=== PATIENT | male | born 1995 | race Caucasian/White ===

== ENCOUNTER 2021-06-17 17:06 | Outpatient (CLI) | payer BC ==
[2021-06-18 03:28] LABS: SARS-CoV-2 PCR by NAA Not Detected (NotDetected)
== END 2021-06-17 17:07 | disposition home or self-care (01) ==
LOC: LABBT 17:06
PROVIDERS: ATTEND Surgery Surgery of the Hand
DX: S66.302A Unspecified injury of extensor muscle, fascia and tendon of right middle finger at wrist and hand level, initial encounter (principal); Z20.822 Contact with and (suspected) exposure to COVID-19
CPT/HCPCS: U0003; U0005

== ENCOUNTER 2021-06-18 12:42 | Day surgery (SDC) | payer BC ==
[2021-06-17 11:50] VITALS: BMI 26.6
[2021-06-18] MEDS ORDERED: Fentanyl 250 MCG/5 ML VIAL ONE (13:07)
[2021-06-18] MEDS ORDERED: Bupivacaine 0.25% HCL 30 ML VIAL ONE (13:21)
[2021-06-18] MEDS ORDERED: Bacitracin Zinc Ointment 30 gm TUBE ONE (13:21)
[2021-06-18] MEDS ORDERED: Lidocaine 1% w/Epinephrine 1:100K 30 ML VIAL ONE (13:21)
[2021-06-18] MEDS ORDERED: ceFAZolin 2 GM/Dextrose 50 ML IVPB ONE (13:34)
[2021-06-18] MEDS ORDERED: Midazolam HCl 2 mg/2 ml Vial ONE (13:38)
[2021-06-18] MEDS ORDERED: Propofol 500 MG/50 ML VIAL ONE (13:38)
[2021-06-18] MEDS ORDERED: Dexamethasone 20 MG/5 ML VIAL ONE (14:04)
== END 2021-06-18 15:12 | disposition home or self-care (01) ==
LOC: SDC 12:42
PROVIDERS: ATTEND Surgery Surgery of the Hand
PROC: 0LQ70ZZ Repair Right Hand Tendon, Open Approach (ICD-10-PCS; principal; 2021-06-18)
DX: S66.324A Laceration of extensor muscle, fascia and tendon of right ring finger at wrist and hand level, initial encounter (principal); X58.XXXA Exposure to other specified factors, initial encounter; Y93.89 Activity, other specified
CPT/HCPCS: J0690; J1100; J2250; J2704; J3010; S0020